=== PATIENT | male | born 1985 | race Caucasian/White ===

== ENCOUNTER 2018-05-30 08:40 | Emergency (ER) | payer SELFPAY ==
--- NOTE | 2018-05-30 09:02 | ER Document Report ---
ED General - General Chief Complaint: Abdominal Pain Stated Complaint: ABDOMINAL PAIN Time Seen by Provider: 05/30/18 09:02 - HPI Patient complains to provider of: N/V/D Notes: Normally healthy 32-year-old male presents with approximately 2 day history of nausea vomiting and profuse diarrhea. Patient has left lower quadrant cramping abdominal pain just prior to episodes of diarrhea. His pain is 2/10 cramping in nature without radiation relieved with having a watery bowel movement. Nausea and vomiting has kept him up at night as well. Patient denies any recent travel, antibiotics. No sick contacts. 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 - Related Data Allergies/Adverse Reactions: No Known Allergies Allergy (Verified 05/30/18 08:49) Past Medical History - Social History Smoking Status: Current Every Day Smoker Family History: Reviewed & Not Pertinent - Immunizations Hx Diphtheria, Pertussis, Tetanus Vaccination: Yes Review of Systems - Review of Systems Notes: REVIEW OF SYSTEMS: CONSTITUTIONAL: -fevers, -chills EENT: -eye pain, -difficulty swallowing, -nasal congestion CARDIOVASCULAR: -chest pain, -syncope. RESPIRATORY: -cough, -SOB GASTROINTESTINAL: +abdominal pain, +nausea, +vomiting, +diarrhea GENITOURINARY: -dysuria, -hematuria MUSCULOSKELETAL: -back pain, -neck pain SKIN: -rash or skin lesions. HEMATOLOGIC: -easy bruising or bleeding. LYMPHATIC: -swollen, enlarged glands. NEUROLOGICAL: -altered mental status or loss of consciousness, -headache, - neurologic symptoms PSYCHIATRIC: -anxiety, -depression. ALL OTHER SYSTEMS REVIEWED AND NEGATIVE. Physical Exam - Vital signs Vitals: Temp Pulse Resp BP Pulse Ox 97.8 F 76 16 135/91 H 100 05/30/18 08:44 05/30/18 08:44 05/30/18 08:44 05/30/18 08:44 05/30/18 08:44 - Notes Notes: PHYSICAL EXAMINATION: GENERAL: Well-appearing, well-nourished and in no acute distress. HEAD: Atraumatic, normocephalic. EYES: Pupils equal round and reactive to light, extraocular movements intact, sclera anicteric, conjunctiva are normal. ENT: nares patent, oropharynx clear without exudates. Moist mucous membranes. NECK: Normal range of motion, supple without lymphadenopathy LUNGS: Breath sounds clear to auscultation bilaterally and equal. No wheezes rales or rhonchi. HEART: Regular rate and rhythm without murmurs ABDOMEN: Soft, nontender, normoactive bowel sounds. No guarding, no rebound. No masses appreciated. EXTREMITIES: Normal range of motion, no pitting or edema. No cyanosis. NEUROLOGICAL: Cranial nerves grossly intact. Normal speech, normal gait. Normal sensory and motor exams. PSYCH: Normal mood, normal affect. SKIN: Warm, Dry, normal turgor, no rashes or lesions noted. Course - Re-evaluation Re-evalutation: 05/30/18 09:40 Well-appearing 32-year-old man presents with short duration nausea vomiting and diarrhea. Reassuring physical exam, stable vitals within normal limits. Patient given antiemetics, antidiarrheals. Patient says his primary care doctor is out of town until early next month. Requesting pain medication. Patient gets 90 chronic pain medications monthly. Most recent refill was about 2 weeks ago. I printed out his [place] registry sheet form by the patient. Recommend follow-up with his pain management doctor. 05/30/18 09:43 - Vital Signs Vital signs: Temp Pulse Resp BP Pulse Ox 97.8 F 76 16 135/91 H 100 05/30/18 08:44 05/30/18 08:44 05/30/18 08:44 05/30/18 08:44 05/30/18 08:44 Discharge - Discharge Clinical Impression: Gastroenteritis Condition: Stable Disposition: HOME, SELF-CARE Instructions: Gastroenteritis (adult) ([facility]) Additional Instructions: See your PCP Prescriptions: Loperamide HCl [Loperamide] 2 mg PO BID #14 capsule Ondansetron [Zofran Odt 4 mg Tablet] 1 - 2 tab PO Q4H PRN #15 tab.rapdis PRN Reason: For Nausea/Vomiting
[2018-05-30] MEDS ORDERED: DICYCLOMINE HCL 20 MG TABLET PO ONE (09:31)
[2018-05-30] MEDS ORDERED: ONDANSETRON 4 MG TAB.RAPDIS PO ONE (09:31)
[2018-05-30] MEDS ORDERED: KETOROLAC TROMETHAMINE 60 MG/2 ML SDV IM ONE (09:32)
[2018-05-30] MEDS ORDERED: LOPERAMIDE HCL 2 MG CAPSULE PO ONE (09:32)
[2018-05-30] MEDS ORDERED: NORMAL SALINE 1000 ML 1,000 ML IV ONE (10:13)
[2018-05-30] MEDS ORDERED: DEXTROSE 5%-NORMAL SALINE 1,000 ML IV ONE (10:14)
[2018-05-30 10:19] LABS: APPEARANCE,URINE SLIGHTLY-CLOUDY; BILIRUBIN,URINE NEGATIVE (NEGATIVE); GLUCOSE, URINE 50 mg/dL (NEGATIVE); KETONES,URINE TRACE mg/dL (NEGATIVE); LEUKOCYTE ESTERASE,URINE NEGATIVE (NEGATIVE); NITRITE,URINE NEGATIVE (NEGATIVE); PROTEIN,URINE 100 mg/dL (NEGATIVE); URINE SPECIFIC GRAVITY 1.038
[2018-05-30 10:20] LABS: COLOR,URINE YELLOW
[2018-05-30 12:15] VITALS: BP 117/72
== END 2018-05-30 12:30 | disposition home or self-care (01) ==
LOC: ER 08:40
DX: K52.9 Noninfective gastroenteritis and colitis, unspecified (principal); R10.32 Left lower quadrant pain; F17.200 Nicotine dependence, unspecified, uncomplicated
CPT/HCPCS: 99284; 96372; 96360; 81001; J3490; J1885; S0119; J7030